=== PATIENT | male | born 1975 | race African-American/Black ===

== ENCOUNTER 2020-03-02 08:41 | Emergency (ER) | payer MEDICAID ==
[~2020-03-02] VITALS: Ht 185.4 cm; Wt 123.5 kg
[~2020-03-02 08:41] MED LIST: AMLO10TA8 PO; CARV-39 PO; HYDR-3342 PO; HYDR12.517 PO; LISI-167 PO; LOSA25TA25 PO; LOSA50TA14 PO; PRAV20TA2 PO
[2020-03-02 09:29] VITALS: BP 148/91
--- NOTE | 2020-03-02 09:30 | NUR ---
pt presents to ed seeking eval for hypertension noted this am at pulmonology appt this am, denies cp, denies sob, denies headache, denies weakness. 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 call light in reach. awaiting MD and orders.
--- NOTE | 2020-03-02 10:18 | NUR ---
PT SEEN AND EXAMINED BY [facility]. PT DISCHARGED BY TASK [facility].
== END 2020-03-02 10:19 | disposition home or self-care (01) ==
LOC: ED 09:45
DX: I10 Essential (primary) hypertension (principal)
CPT/HCPCS: 99281